=== PATIENT | female | born 2000 | race Caucasian/White ===

== ENCOUNTER 2024-04-11 22:55 | Outpatient (CLI) | payer BC ==
[2024-04-11 23:29] LABS: Appearance,Urine Cloudy (Clear); Bacteria,Urine Occasional /hpf; Bilirubin,Urine Negative (Negative); Blood,Urine Negative (Negative); Calcium Oxalate Crystals,Urine Occasional /hpf; Color,Urine Yellow; Glucose,Urine (UA) Negative (Negative); Ketones,Urine 2+ (Negative); Leukocyte Esterase,Urine Small (Negative); Mucus,Urine Moderate /hpf; Nitrite,Urine Negative (Negative); Protein,Urine Trace (Negative); RBC,Urine 3 /hpf (0-5); Specific Gravity,Urine 1.027 (1.001-1.035); Squamous Epithelial Cell,Urine 13 /hpf (0-4); Urobilinogen,Urine <2.0 mg/dL (<2.0); WBC,Urine 7 /hpf (0-5)
[2024-04-12 01:19] VITALS: BP 132/76; PULSE 138; RESP 16; TEMP 98
== END 2024-04-12 00:30 | disposition home or self-care (01) ==
LOC: FBPOP 22:55
PROVIDERS: ATTEND Obstetrics & Gynecology
DX: Z53.9 Procedure and treatment not carried out, unspecified reason (principal)
CPT/HCPCS: 59025; 81001; 99213

== ENCOUNTER 2024-05-17 05:58 | Inpatient (IN) | payer BC, OTHER ==
[2024-05-17] MEDS ORDERED: METHYLERGONOVINE 0.2 MG/ML 1 ML AMP IM PRN (06:16)
[2024-05-17] MEDS ORDERED: miSOPROStoL 200 MCG TAB RECTAL PRN (06:16)
[2024-05-17] MEDS ORDERED: TERBUTALINE 1 MG/ML VIAL SQ PRN (06:16)
[2024-05-17] MEDS ORDERED: miSOPROStoL 200 MCG TAB PO PRN (06:16)
[2024-05-17] MEDS ORDERED: LIDOCAINE 0.5% (PF) 5 MG/ML (50 ML SDV) SQ PRN (06:16)
[2024-05-17] MEDS ORDERED: TRANEXAMIC 1,000 MG/100ML-NACL 1,000 MG in EMPTY BAG 1 BAG IV PRN (06:16)
[2024-05-17] MEDS ORDERED: CARBOPROST TROMETHAMINE 250 MCG/ML 1 ML AMP IM PRN (06:16)
[2024-05-17] MEDS ORDERED: OXYTOCIN 10 UNIT/ML 1 ML VIAL IM PRN (06:16)
[2024-05-17 06:49] LABS: Basophils % (A) 0 %; Eosinophils # (A) 0.1 k/uL (0-0.7); Eosinophils % (A) 1 %; HCT 31.8 % (34.0-46.0); HGB 10.2 gm/dL (11.4-16.0); Hypochromasia Slight; Lymphocytes # (A) 1.8 k/uL (1.0-4.8); Lymphocytes % (A) 17 %; MCH 25.5 pg (25.0-35.0); MCHC 31.9 g/dL (31.0-37.0); MCV 79.9 fL (80.0-100.0); Mean Platelet Volume 7.9; Monocytes # (A) 0.8 k/uL (0-1.0); Monocytes % (A) 7 %; Neutrophils # (A) 7.8 k/uL (1.3-7.7); Neutrophils % (A) 73 %; Platelet Count 251 k/uL (150-450); RBC 3.98 m/uL (3.80-5.40); RDW 15.5 % (11.5-15.5); WBC 10.6 k/uL (3.8-10.6)
[2024-05-17] MEDS: LACTATED RINGERS 1,000 ML IV SCH (07:20)
[2024-05-17 07:41] VITALS: RESP 16
[2024-05-17] MEDS ORDERED: OXYTOCIN 30 UNITS/500 ML NS 30 UNIT in SALINE 1 500ML.BAG IV SCH ×2 (08:00→10:30)
[2024-05-17] MEDS ORDERED: BUTORPHANOL 1 MG/ML 1 ML VIAL IV PRN (08:40)
--- NOTE | 2024-05-17 08:40 | P.HPOB ---
History of Present Illness H&P Date: 05/17/24 Chief Complaint: 40-0/7 weeks, induction The patient is a 23-year-old 2 para 1-0-0-1 admitted at 40-0/7 weeks as established by an 8-week ultrasound. She is admitted for induction of labor with all signs reassuring, category 1 heart rate tracing. Her has been uncomplicated and group B strep status is negative. She is Rh- and received RhoGAM at 28 weeks. Obstetrical history: 2 para 1-0-0-1 with 1 term vaginal delivery without complications. Current statistics are listed in history of present illness. EDC of 05/17/2024 was established by 8-week ultrasound. Laboratory workup demonstrates a blood type of a negative with a negative antibody screen. Rubella status is immune. The remainder of the laboratory workup was within normal limits. 1 hour Glucola was normal and group B strep status is negative. Gynecologic history: Unremarkable with no history of any infections to include STDs. Review of Systems Review of systems is confined to history of present illness. Past Medical History Past Medical History: No Reported History History of Any Multi-Drug Resistant Organisms: None Reported Additional Past Surgical History / Comment(s): Lt knee 2018 Past Anesthesia/Blood Transfusion Reactions: No Reported Reaction Past Psychological History: No Psychological Hx Reported Smoking Status: Never smoker Additional Drug Use History / Comment(s): quit vaping with this - Past Family History Mother Family Medical History: Renal Disease Medications and Allergies Home Medications Medication Instructions Recorded Confirmed Type Vit No.179/Iron/Folic 1 each PO DAILY 05/17/24 05/17/24 History [ Tablet] Allergies Allergy/AdvReac Type Severity Reaction Status Date / Time No Known Allergies Allergy Verified 05/17/24 06:15 Exam Vital Signs Temp Pulse Resp BP 05/17/24 06:14 97.1 F L 90 16 119/72 Intake and Output 05/16/24 05/17/24 05/17/24 22:59 06:59 14:59 Other: Weight 64.41 kg In general, this is a well-developed, well-nourished white female in some discomfort as she is in labor. Her heart has a regular rhythm and rate without murmur. Her lungs are clear to auscultation bilaterally in all sahu. Her abdomen is gravid, nondistended, has normal active bowel sounds, soft, nontender, and without any palpable masses aside from the uterine fundus. Her extremities are without any cyanosis, clubbing, or significant edema and are nontender to palpation bilaterally. Digital cervical examination demonstrates her cervix to be 4 to 5 cm dilated, 60% effaced, the vertex and presentation at -2 station. Artificial rupture of membranes is carried out demonstrating clear fluid. Results Result Diagrams: 05/17/24 06:35 Abnormal Lab Results - Last 24 Hours (Table) 05/17/24 Range/Units 06:35 Hgb 10.2 L (11.4-16.0) gm/dL Hct 31.8 L (34.0-46.0) % MCV 79.9 L (80.0-100.0) fL Neutrophils # 7.8 H (1.3-7.7) k/uL Assessment and Plan (1) Term Current Visit: Yes Status: Acute Code(s): Z34.90 - ENCNTR FOR SUPRVSN OF NORMAL , UNSP, UNSP TRIMESTER SNOMED Code(s): 44382018 Plan: The patient is admitted for induction of labor. Pitocin augmentation has been started and she has undergone artificial rupture of membranes. She will have close maternal and surveillance and expectant management will be practiced. She is a good candidate for either IV or epidural analgesia, whichever she may choose.
[2024-05-17] MEDS ORDERED: LIDOCAINE HCL/PF 20 MG/ML 10 ML AMP ONE (09:17)
[2024-05-17] MEDS ORDERED: SODIUM CHLORIDE 0.9% (PF) 10 ML VIAL ONE (09:17)
[2024-05-17] MEDS: BENZOCAINE/MENTHOL SPRAY 1 GM/SPRAY AEROSOL TOPICAL PRN (10:07)
[2024-05-17] MEDS ORDERED: diphenhydrAMINE 50 MG CAP PO PRN (10:19)
[2024-05-17] MEDS ORDERED: diphenhydrAMINE 50 MG/ML 1 ML VIAL IVP PRN ×2 (10:19)
[2024-05-17] MEDS ORDERED: HYDROCORTISONE 2.5% RECTAL CREAM 30 GM TUBE RECTAL PRN (10:19)
[2024-05-17] MEDS ORDERED: SIMETHICONE 80 MG CHEWABLE PO PRN (10:19)
[2024-05-17] MEDS ORDERED: diphenhydrAMINE 25 MG CAP PO PRN (10:19)
[2024-05-17] MEDS ORDERED: ZOLPIDEM 5 MG TAB PO PRN (10:19)
[2024-05-17] MEDS ORDERED: LANOLIN CREAM 1 GM TUBE TOPICAL PRN (10:19)
--- NOTE | 2024-05-17 10:23 | P.PROBDLV ---
Vaginal Delivery Note - . Vaginal Delivery Note: Patient is a 23-year-old 2 para 1-0-0-1 admitted at 40-0/7 weeks by good dating parameters. She is admitted for induction of labor with all signs reassuring, category 1 heart rate tracing. Her was uncomplicated. She is Rh- and received RhoGAM at 28 weeks. On labor and delivery, she had Pitocin started and underwent artificial rupture of membranes for clear fluid. She was making very rapid progress through the active phase of labor and had an epidural catheter placed but was never fully dosed when she reached complete dilation. She pushed over the course of approximately 15 to 20 minutes to a normal spontaneous vaginal delivery of a viable 8 pound 0 ounce baby girl with Apgars of 8 at 1 minute and 9 at 5 minutes delivered in the direct occiput anterior position. The placenta was delivered spontaneously, intact, grossly normal with a grossly normal three-vessel cord inserted approximately 1 cm from the margin of the placental disc. There were no lacerations of the perineum, vagina, or cervix. Estimated blood loss for the ca se was 100 mL. There were no complications. All sponge, instrument, and needle counts were correct. Both mother and infant are resting comfortably in recovery.
[2024-05-17] MEDS: IBUPROFEN 800 MG TAB PO PRN (12:13)
[2024-05-17] MEDS: ROPIVACAINE 225 MG, fentaNYL (PF). 450 MCG in SODIUM CHLORIDE 0.9% 171 ML EPIDURAL ONE (19:39)
[2024-05-17] MEDS: SENNOSIDES-DOCUSATE SODIUM 1 EACH TAB PO SCH (19:47)
[2024-05-18] MEDS: ACETAMINOPHEN TAB 500 MG TAB PO PRN (00:22)
[2024-05-18 07:11] LABS: Basophils % (A) 0 %; Eosinophils # (A) 0.1 k/uL (0-0.7); Eosinophils % (A) 1 %; HCT 30.3 % (34.0-46.0); HGB 9.7 gm/dL (11.4-16.0); Hypochromasia Moderate; Lymphocytes % (A) 13 %; MCH 25.9 pg (25.0-35.0); MCHC 31.9 g/dL (31.0-37.0); MCV 81.4 fL (80.0-100.0); Mean Platelet Volume 7.5; Monocytes # (A) 0.9 k/uL (0-1.0); Monocytes % (A) 6 %; Neutrophils # (A) 11.8 k/uL (1.3-7.7); Neutrophils % (A) 78 %; Platelet Count 230 k/uL (150-450); RBC 3.72 m/uL (3.80-5.40); RDW 15.6 % (11.5-15.5); WBC 15.1 k/uL (3.8-10.6)
[2024-05-18 08:16] VITALS: BP 112/68; PULSE 79; TEMP 98.1
--- NOTE | 2024-05-18 08:46 | P.DS ---
Providers Date of admission: 05/17/24 05:58 Expected date of discharge: 05/18/24 Attending physician: Tee Hancock Primary care physician: Stated None - Discharge Diagnosis(es) (1) Term Current Visit: Yes Status: Acute (2) Normal spontaneous vaginal delivery Current Visit: Yes Status: Acute Hospital Course: The patient is a 23-year-old 2 para 1-0-0-1 admitted at 40-0/7 weeks by good dating parameters. She is admitted for induction of labor with all signs reassuring, category 1 heart rate tracing. Group B strep status is negative. She is Rh- and received RhoGAM at 28 weeks. On labor and delivery, she had Pitocin started and underwent artificial rupture of membranes for clear fluid. She was making rapid progress through the active phase of labor and had an epidural catheter placed but was never dosed as she became complete at that time. She pushed to a normal spontaneous vaginal delivery of a viable 8 pound 0 ounce baby girl with Apgars of 8 at 1 minute and 9 at 5 minutes. Her course was unremarkable with vital signs remaining stable and her temperature was afebrile throughout. She was deemed stable for discharge on day #1 and was discharged home to follow-up in the office in 6 weeks time routinely. Discharge instructions included calling for any significantly increased bleeding or foul-smelling lochia, significantly increased fever or abdominal pain, perineal complaints, breast complaints, or anything else that concerned her. She was additionally instructed to have nothing in the vagina for at least 6 weeks time to include intercourse. She understood her instructions and agrees to follow-up as noted above. Discharge medications included continued vitamins as she has opted to breast-feed. She was otherwise to use [id number] analgesic pain medications as needed. Maternal blood type is A- and rubella status is immune. cord blood was sent for the evaluation for the necessity of RhoGAM prior to discharge. Procedures: #1. Pitocin induction #2. Artificial rupture of membranes #3. Epidural analgesia #4. Normal spontaneous vaginal delivery Patient Condition at Discharge: Stable Plan - Discharge Summary New Discharge Prescriptions: No Action Vit No.179/Iron/Folic [ Tablet] 1 each PO DAILY Discharge Medication List Vit No.179/Iron/Folic [ Tablet] 1 each PO DAILY 05/17/24 [History] Follow up Appointment(s)/Referral(s): Tee Hancock MD [STAFF PHYSICIAN] - 06/28/24 1:15 pm Discharge Disposition: HOME SELF-CARE
== END 2024-05-18 11:21 | disposition home or self-care (01) | DRG 560 ==
LOC: 4FBP 05:58
PROVIDERS: ADMIT Obstetrics & Gynecology; ATTEND Obstetrics & Gynecology
PROC: 10E0XZZ Delivery of Products of Conception, External Approach (ICD-10-PCS; principal; 2024-05-17)
PROC: 10907ZC Drainage of Amniotic Fluid, Therapeutic from Products of Conception, Via Natural or Artificial Opening (ICD-10-PCS; principal; 2024-05-17)
DX: O26.893 Other specified pregnancy related conditions, third trimester (principal); Z87.891 Personal history of nicotine dependence; Z67.11 Type A blood, Rh negative; Z3A.40 40 weeks gestation of pregnancy; Z37.0 Single live birth
CPT/HCPCS: 85025; 86850; 86900; 86901